=== PATIENT | female | born 1980 | race Caucasian/White ===

== ENCOUNTER 2016-10-14 23:50 | Emergency (ER) | payer OTHER ==
[~2016-10-14] VITALS: Ht 165.1 cm; Wt 124.5 kg
[~2016-10-14 23:50] MED LIST: ALBU8.5H5 INH; ALPR0.25 PO; ANTI DEPRESSANT; CITA10TA4 PO; DOXY100C15 PO; FLUT16SP2 NAS; HYDR1TAB16 PO; IBUP-1222 PO; LEVO750T26 PO; LISI-167 PO; METH4TAB2 PO; NORE1TAB18 PO; OMEP10CA4 PO
[2016-10-15] MEDS ORDERED: OXYcodone/APAP 5/325MG TABLET PO ONE (00:30)
[2016-10-15] MEDS ORDERED: ONDANSETRON ODT 4 MG PO ONE ×2 (00:30→01:30)
[2016-10-15] MEDS ORDERED: ONDANSETRON ODT 4 MG ONE (00:33)
[2016-10-15] MEDS ORDERED: OXYcodone/APAP 5/325MG TABLET ONE (00:33)
[2016-10-15] MEDS ORDERED: KETOROLAC 30 MG/1 ML ONE (01:21)
[2016-10-15] MEDS ORDERED: KETOROLAC 30 MG/1 ML IM ONE (01:30)
[2016-10-15] MEDS ORDERED: HYDROmorphone 1 MG/ML, 1ML IM ONE (01:30)
[2016-10-15 01:42] VITALS: BP 160/67
== END 2016-10-15 01:54 | disposition home or self-care (01) ==
LOC: ED 23:59
DX: K02.9 Dental caries, unspecified (principal); Z88.2 Allergy status to sulfonamides; Z88.0 Allergy status to penicillin; G89.29 Other chronic pain; M54.9 Dorsalgia, unspecified; E11.9 Type 2 diabetes mellitus without complications; I10 Essential (primary) hypertension
CPT/HCPCS: 82962; 99281; 99282

== ENCOUNTER → 2017-01-21 | Outpatient (CLI) | payer OTHER | END | disposition home or self-care (01) | LOC: CFH 15:56 | PROVIDERS: ATTEND Physician Assistant Medical | DX: K76.0 Fatty (change of) liver, not elsewhere classified (principal) | CPT/HCPCS: 76700 ==

== ENCOUNTER → 2017-02-21 | Outpatient (CLI) | payer OTHER | END | disposition home or self-care (01) | LOC: PETCFH 08:22 | PROVIDERS: ATTEND Physician Assistant Medical | DX: K82.8 Other specified diseases of gallbladder (principal) | CPT/HCPCS: 78227; A9537 ==

== ENCOUNTER 2017-03-03 05:55 | Inpatient (IN) | payer OTHER ==
[~2017-03-03] VITALS: Ht 165.1 cm; Wt 120.0 kg
[~2017-03-03 05:55] MED LIST changes: +METF500T4 PO; +NORE-62 PO; +PANT40TA5 PO
[2017-03-03 06:33] VITALS: BP 158/119
[2017-03-03] MEDS ORDERED: BUPIVACAINE/PF 0.5% ONE (07:04)
[2017-03-03] MEDS ORDERED: EPINEPHRINE 1 MG/ML, 1ML ONE ×2 (07:04→07:28)
[2017-03-03] MEDS: LACTATED RINGERS 1,000 ML IV SCH ×3 (07:10→10:22)
[2017-03-03 07:13] LABS: MICROSCOPIC AUTO
[2017-03-03] MEDS ORDERED: PROPOFOL 10 MG/ML, 20ML ONE ×4 (07:24→08:23)
[2017-03-03 07:26] LABS: CULTURE INDICATED? NO
[2017-03-03] MEDS ORDERED: MIDAZOLAM 1 MG/ML, 2ML ONE (07:26)
[2017-03-03] MEDS ORDERED: FENTANYL PF 100 MCG/2ML ONE (07:27)
[2017-03-03 07:30] LABS: HCG UR SG 1.031 (1.003-1.030)
[2017-03-03] MEDS ORDERED: ROCURONIUM 10 MG/ML,10ML ONE (07:31)
[2017-03-03] MEDS ORDERED: SUCCINYLCHOLINE 20 MG/ML, 10ML ONE (07:31)
[2017-03-03] MEDS ORDERED: KETAMINE 10 MG/ML, 20ML ONE (07:34)
[2017-03-03] MEDS ORDERED: LACTATED RINGERS 1,000 ML IV SCH (07:58)
[2017-03-03] MEDS ORDERED: DEXAMETHASONE 4 MG/ML, 1ML ONE ×2 (08:26)
[2017-03-03] MEDS ORDERED: ALBUTEROL HFA 90 MCG/SPRAY ONE (08:26)
[2017-03-03] MEDS ORDERED: PROPOFOL 100 ML IV ONE (08:51)
[2017-03-03] MEDS ORDERED: PROPOFOL 100 ML IV PRN (09:30)
[2017-03-03] MEDS ORDERED: SODIUM CHLORIDE 0.9% 1,000 ML IV SCH (10:12)
[2017-03-03] MEDS ORDERED: hydrALAzine 20 MG/ML, 1ML ONE (10:13)
[2017-03-03] MEDS ORDERED: hydrALAzine 20 MG/ML, 1ML IVPush PRN (10:30)
[2017-03-03] MEDS ORDERED: OXYcodone IR 5MG TABLET PO PRN (10:30)
[2017-03-03] MEDS ORDERED: LABETALOL 5MG/ML, 20ML IVPush PRN (10:30)
[2017-03-03] MEDS ORDERED: POLYETHYLENE GLYCOL 17 GM PACKET PO PRN (10:30)
[2017-03-03] MEDS ORDERED: ONDANSETRON 2MG/ML, 2ML IVPush PRN (10:30)
[2017-03-03] MEDS: ENOXAPARIN 40 MG/0.4 ML SQ SCH (11:55)
[2017-03-03] MEDS ORDERED: LISINOPRIL 5 MG TABLET ONE (12:55)
[2017-03-03] MEDS: NORETHINDRONE ETHINYL ESTRAD HOMEMEDPO SCH (12:59)
[2017-03-03] MEDS ORDERED: PANTOPROZOLE 40MG TABLET PO SCH (13:00)
[2017-03-03] MEDS ORDERED: LISINOPRIL 10 MG TABLET PO SCH (13:00)
[2017-03-03] MEDS ORDERED: CITALOPRAM 10 MG TABLET PO SCH (13:00)
[2017-03-03] MEDS ORDERED: ALBUTEROL SULFATE 2.5 MG/3 ML NPPB PRN (13:30)
[2017-03-03 14:09] LABS: BASOPHILS # (AUTO) 0.02 x10^3/uL (0-0.1); BASOPHILS % (AUTO) 0 % (0-1); EOSINOPHILS % (AUTO) 0 % (1-7); LYMPHOCYTES # (AUTO) 1.65 x10^3/uL (1-3.4); LYMPHOCYTES % (AUTO) 9 % (22-44); MD NO; MEAN CORPUSCULAR HEMOGLOBIN 28.2 pg (27.0-34.8); MEAN CORPUSCULAR VOLUME 85.5 fL (80-100); MEAN PLATELET VOLUME 8.4 fL (7.4-10.4); MONOCYTES # (AUTO) 0.07 x10^3/uL (0.2-0.8); MONOCYTES % (AUTO) 0 % (2-9); NEUTROPHILS % (AUTO) 90 % (42-75); PLATELET COUNT 404 x10^3/uL (130-400); RED BLOOD COUNT 5.05 x10^6/uL (3.82-5.3); RED CELL DISTRIBUTION WIDTH 13.9 % (9.6-15.2)
[2017-03-03 14:20] LABS: ALANINE AMINOTRANSFERASE 30 U/L (12-78); ALBUMIN 3.2 g/dL (3.4-5.0); ANION GAP 11 mmol/L (5-15); CALCIUM 8.4 mg/dL (8.5-10.1); CHLORIDE 105 mmol/L (98-107); CREATININE 0.69 mg/dL (0.55-1.02)
[2017-03-03 14:22] LABS: ALKALINE PHOSPHATASE 88 U/L (45-117); BILIRUBIN,TOTAL 0.6 mg/dL (0.2-1.0); TOTAL PROTEIN 7.5 g/dL (6.4-8.2)
[2017-03-03] MEDS: INSULIN ASPART 100 UNITS/ML, PEN SQ-INSULIN SCH ×2 (16:31→20:58)
[2017-03-03 20:10] VITALS: BP 136/86
[2017-03-03] MEDS: ACETAMINOPHEN 325 MG TABLET PO PRN (20:53)
[2017-03-03 23:21] VITALS: BP 140/96
[2017-03-04 03:19] VITALS: BP 130/77
[2017-03-04 05:02] LABS: BASOPHILS # (AUTO) 0.05 x10^3/uL (0-0.1); BASOPHILS % (AUTO) 0 % (0-1); EOSINOPHILS # (AUTO) 0.01 x10^3/uL (0-0.4); EOSINOPHILS % (AUTO) 0 % (1-7); LYMPHOCYTES # (AUTO) 3.51 x10^3/uL (1-3.4); LYMPHOCYTES % (AUTO) 22 % (22-44); MD NO; MEAN CORPUSCULAR HEMOGLOBIN 28.2 pg (27.0-34.8); MEAN CORPUSCULAR HGB CONC 32.8 g/dL (32.4-35.8); MEAN CORPUSCULAR VOLUME 86.2 fL (80-100); MEAN PLATELET VOLUME 8.2 fL (7.4-10.4); MONOCYTES # (AUTO) 1.04 x10^3/uL (0.2-0.8); MONOCYTES % (AUTO) 7 % (2-9); NEUTROPHILS # (AUTO) 11.41 x10^3/uL (1.8-6.8); NEUTROPHILS % (AUTO) 71 % (42-75); PLATELET COUNT 434 x10^3/uL (130-400); RED BLOOD COUNT 4.76 x10^6/uL (3.82-5.3); RED CELL DISTRIBUTION WIDTH 13.8 % (9.6-15.2)
[2017-03-04 05:20] LABS: CHLORIDE 105 mmol/L (98-107)
[2017-03-04 05:29] LABS: ALANINE AMINOTRANSFERASE 22 U/L (12-78); ALKALINE PHOSPHATASE 79 U/L (45-117); ANION GAP 9 mmol/L (5-15); BILIRUBIN,TOTAL 0.4 mg/dL (0.2-1.0); CALCIUM 8.6 mg/dL (8.5-10.1); CREATININE 0.66 mg/dL (0.55-1.02); TOTAL PROTEIN 6.9 g/dL (6.4-8.2)
[2017-03-04] MEDS: INSULIN ASPART 100 UNITS/ML, PEN SQ-INSULIN SCH ×2 (06:15→10:51)
[2017-03-04] MEDS: ACETAMINOPHEN 325 MG TABLET PO PRN (07:26)
[2017-03-04] MEDS: NORETHINDRONE ETHINYL ESTRAD HOMEMEDPO SCH (07:27)
[2017-03-04 08:30] VITALS: BP 128/85
[2017-03-04] MEDS ORDERED: SENNA/DOCUSATE TABLET PO SCH (09:00)
[2017-03-04] MEDS: ENOXAPARIN 40 MG/0.4 ML SQ SCH (10:30)
[2017-03-04 14:24] VITALS: BP 143/96
== END 2017-03-04 15:00 | disposition home or self-care (01) | DRG 444 ==
LOC: OUT 05:55 → CCU 08:55 → 4NOR 20:04 → DCLOUNGE 03-04 14:45
PROVIDERS: ADMIT Internal Medicine; ATTEND Internal Medicine
DX: K82.8 Other specified diseases of gallbladder (principal); J96.01 Acute respiratory failure with hypoxia; Z99.11 Dependence on respirator [ventilator] status; Z68.41 Body mass index [BMI] 40.0-44.9, adult; E11.9 Type 2 diabetes mellitus without complications; E66.01 Morbid (severe) obesity due to excess calories; F32.9 Major depressive disorder, single episode, unspecified; G47.33 Obstructive sleep apnea (adult) (pediatric); I10 Essential (primary) hypertension; J45.909 Unspecified asthma, uncomplicated; K21.9 Gastro-esophageal reflux disease without esophagitis; Z53.9 Procedure and treatment not carried out, unspecified reason; Z79.4 Long term (current) use of insulin; Z82.49 Family history of ischemic heart disease and other diseases of the circulatory system; Z91.19 Patient's noncompliance with other medical treatment and regimen; Z88.0 Allergy status to penicillin; Z88.2 Allergy status to sulfonamides; Z91.013 Allergy to seafood
CPT/HCPCS: 36415; 36600; 71010; 80053; 81001; 81025; 82803; 82962; 85025; 87081; 94002; 94150; J0171; J1100; J1650; J1815; J2250; J2704; J3010; J3490; J0330; J0360; J7030; J7120

== ENCOUNTER → 2017-06-28 | Outpatient (CLI) | payer OTHER | END | disposition home or self-care (01) | LOC: CFH 12:33 | PROVIDERS: ATTEND Physician Assistant Medical | DX: J98.11 Atelectasis (principal); J10.1 Influenza due to other identified influenza virus with other respiratory manifestations | CPT/HCPCS: 71046 ==

== ENCOUNTER → 2017-07-18 | Outpatient (CLI) | payer OTHER | END | disposition home or self-care (01) | LOC: RAD 14:01 | PROVIDERS: ATTEND Family Medicine | DX: M79.604 Pain in right leg (principal); R60.0 Localized edema ==

== ENCOUNTER → 2017-07-27 | Outpatient (CLI) | payer OTHER ==
[2017-07-27 12:38] LABS: BASOPHILS # (AUTO) 0.04 x10^3/uL (0-0.1); BASOPHILS % (AUTO) 0 % (0-1); EOSINOPHILS # (AUTO) 0.12 x10^3/uL (0-0.4); EOSINOPHILS % (AUTO) 1 % (1-7); LYMPHOCYTES # (AUTO) 3.93 x10^3/uL (1-3.4); LYMPHOCYTES % (AUTO) 30 % (22-44); MD NO; MEAN CORPUSCULAR HEMOGLOBIN 28.1 pg (27.0-34.8); MEAN CORPUSCULAR HGB CONC 32.8 g/dL (32.4-35.8); MEAN CORPUSCULAR VOLUME 85.5 fL (80-100); MEAN PLATELET VOLUME 8.6 fL (7.4-10.4); MONOCYTES # (AUTO) 0.66 x10^3/uL (0.2-0.8); MONOCYTES % (AUTO) 5 % (2-9); NEUTROPHILS # (AUTO) 8.38 x10^3/uL (1.8-6.8); NEUTROPHILS % (AUTO) 64 % (42-75); PLATELET COUNT 418 x10^3/uL (130-400); RED BLOOD COUNT 4.79 x10^6/uL (3.82-5.3)
[2017-07-27 12:55] LABS: CHLORIDE 109 mmol/L (98-107)
[2017-07-27 13:09] LABS: ALANINE AMINOTRANSFERASE 18 U/L (12-78); ALBUMIN 2.9 g/dL (3.4-5.0); ALKALINE PHOSPHATASE 87 U/L (45-117); ANION GAP 9 mmol/L (5-15); BILIRUBIN,TOTAL 0.4 mg/dL (0.2-1.0); CALCIUM 8.6 mg/dL (8.5-10.1); CHOL/HDL RATIO 6.1; CHOLESTEROL, TOTAL 184 mg/dL (140-239); CREATININE 0.72 mg/dL (0.55-1.02); FREE T4 (FREE THYROXINE) 1.09 ng/dL (0.76-1.46); HDL CHOL % 16 % (28-40); HDL CHOLESTEROL (DIRECT) 30 mg/dL (40-60); LDL CHOLESTEROL,CALCULATED 78 mg/dL (54-169); LDL/HDL RATIO 2.6 (0.5-3.0); TOTAL PROTEIN 7.2 g/dL (6.4-8.2); TRIGLYCERIDES 380 mg/dL (50-200); VLDL CHOLESTEROL 76 mg/dL (0-25)
[2017-07-27 13:22] LABS: MICROSCOPIC AUTO
[2017-07-27 13:24] LABS: CULTURE INDICATED? NO
[2017-07-27 13:28] LABS: HEMOGLOBIN A1C 8.2 % (4.2-6.3)
== END | disposition home or self-care (01) ==
LOC: CFH 07:41
PROVIDERS: ATTEND Physician Assistant Medical
DX: Z00.00 Encounter for general adult medical examination without abnormal findings (principal); I10 Essential (primary) hypertension; K21.0 Gastro-esophageal reflux disease with esophagitis; R53.83 Other fatigue
CPT/HCPCS: 36415; 80053; 80061; 81001; 82043; 82306; 83036; 83516; 84439; 84443; 84481; 85025; 86038; 86141; 86160; 86225; 86235; 86255; 86256; 86376; 86431; 86800

== ENCOUNTER → 2017-08-05 | Outpatient (CLI) | payer OTHER | END | disposition home or self-care (01) | LOC: CVU 06:56 | PROVIDERS: ATTEND Internal Medicine Critical Care Medicine | DX: I10 Essential (primary) hypertension (principal); G47.30 Sleep apnea, unspecified; J45.909 Unspecified asthma, uncomplicated; Z87.891 Personal history of nicotine dependence | CPT/HCPCS: 93306 ==

== ENCOUNTER → 2018-05-02 | Outpatient (CLI) | payer OTHER ==
[~2018-05-02] MED LIST changes: +METF500T17 PO; -METF500T4 PO
[2018-05-02 12:53] LABS: BASOPHILS # (AUTO) 0.04 x10^3/uL (0-0.1); BASOPHILS % (AUTO) 0 % (0-1); EOSINOPHILS # (AUTO) 0.13 x10^3/uL (0-0.4); EOSINOPHILS % (AUTO) 1 % (1-7); LYMPHOCYTES # (AUTO) 3.96 x10^3/uL (1-3.4); LYMPHOCYTES % (AUTO) 36 % (22-44); MD NO; MEAN CORPUSCULAR HGB CONC 32.2 g/dL (32.4-35.8); MEAN CORPUSCULAR VOLUME 83.9 fL (80-100); MEAN PLATELET VOLUME 8.3 fL (7.4-10.4); MONOCYTES # (AUTO) 0.57 x10^3/uL (0.2-0.8); MONOCYTES % (AUTO) 5 % (2-9); NEUTROPHILS # (AUTO) 6.21 x10^3/uL (1.8-6.8); NEUTROPHILS % (AUTO) 57 % (42-75); PLATELET COUNT 412 x10^3/uL (130-400); RED BLOOD COUNT 4.76 x10^6/uL (3.82-5.3); RED CELL DISTRIBUTION WIDTH 13.7 % (9.6-15.2)
[2018-05-02 13:16] LABS: HEMOGLOBIN A1C 8.6 % (4.2-6.3)
[2018-05-02 13:47] LABS: ALBUMIN 3.1 g/dL (3.4-5.0); ANION GAP 8 mmol/L (5-15); CALCIUM 8.6 mg/dL (8.5-10.1); CHLORIDE 107 mmol/L (98-107)
[2018-05-02 13:57] LABS: ALANINE AMINOTRANSFERASE 17 U/L (12-78); ALKALINE PHOSPHATASE 90 U/L (45-117); BILIRUBIN,TOTAL 0.2 mg/dL (0.2-1.0); CHOL/HDL RATIO 4.6; CHOLESTEROL, TOTAL 144 mg/dL (140-239); CREATININE 0.76 mg/dL (0.55-1.02); FREE T4 (FREE THYROXINE) 1.05 ng/dL (0.76-1.46); HDL CHOL % 22 % (28-40); HDL CHOLESTEROL (DIRECT) 31 mg/dL (40-60); LDL CHOLESTEROL,CALCULATED 47 mg/dL (54-169); LDL/HDL RATIO 1.5 (0.5-3.0); TOTAL PROTEIN 7.5 g/dL (6.4-8.2); TRIGLYCERIDES 332 mg/dL (50-200); VLDL CHOLESTEROL 66 mg/dL (0-25)
== END | disposition home or self-care (01) ==
LOC: CFH 08:02
PROVIDERS: ATTEND Nurse Practitioner Family
DX: D72.828 Other elevated white blood cell count (principal); E13.65 Other specified diabetes mellitus with hyperglycemia; E55.9 Vitamin D deficiency, unspecified; I10 Essential (primary) hypertension; R76.9 Abnormal immunological finding in serum, unspecified
CPT/HCPCS: 36415; 80053; 80061; 82043; 82306; 83036; 84439; 84443; 85025

== ENCOUNTER → 2018-06-29 | Outpatient (CLI) | payer OTHER ==
[2018-06-29 13:35] LABS: HEMOGLOBIN A1C 7.9 % (4.2-6.3)
[2018-06-29 13:36] LABS: ALANINE AMINOTRANSFERASE 14 U/L (12-78); ANION GAP 6 mmol/L (5-15); CALCIUM 8.7 mg/dL (8.5-10.1); CHLORIDE 107 mmol/L (98-107); CREATININE 0.67 mg/dL (0.55-1.02)
[2018-06-29 13:38] LABS: ALKALINE PHOSPHATASE 84 U/L (45-117); BILIRUBIN,TOTAL 0.4 mg/dL (0.2-1.0); TOTAL PROTEIN 7.2 g/dL (6.4-8.2)
== END | disposition home or self-care (01) ==
LOC: CFH 08:36
PROVIDERS: ATTEND Nurse Practitioner Family
DX: E11.65 Type 2 diabetes mellitus with hyperglycemia (principal); E78.5 Hyperlipidemia, unspecified; I10 Essential (primary) hypertension; Z79.84 Long term (current) use of oral hypoglycemic drugs
CPT/HCPCS: 36415; 80053; 83036

== ENCOUNTER → 2018-07-06 | Outpatient (CLI) | payer OTHER | END | disposition home or self-care (01) | LOC: CFH 12:35 | PROVIDERS: ATTEND Obstetrics & Gynecology | DX: Z12.31 Encounter for screening mammogram for malignant neoplasm of breast (principal) | CPT/HCPCS: 77067 ==

== ENCOUNTER → 2018-09-01 | Outpatient (CLI) | payer OTHER ==
[2018-09-01 12:27] LABS: BASOPHILS # (AUTO) 0.03 x10^3/uL (0-0.1); BASOPHILS % (AUTO) 0 % (0-1); EOSINOPHILS % (AUTO) 1 % (1-7); LYMPHOCYTES # (AUTO) 3.59 x10^3/uL (1-3.4); LYMPHOCYTES % (AUTO) 33 % (22-44); MD NO; MEAN CORPUSCULAR HEMOGLOBIN 26.9 pg (27.0-34.8); MEAN CORPUSCULAR HGB CONC 32.2 g/dL (32.4-35.8); MEAN CORPUSCULAR VOLUME 83.7 fL (80-100); MEAN PLATELET VOLUME 8.3 fL (7.4-10.4); MONOCYTES # (AUTO) 0.52 x10^3/uL (0.2-0.8); MONOCYTES % (AUTO) 5 % (2-9); NEUTROPHILS # (AUTO) 6.76 x10^3/uL (1.8-6.8); NEUTROPHILS % (AUTO) 61 % (42-75); PLATELET COUNT 488 x10^3/uL (130-400); RED CELL DISTRIBUTION WIDTH 14.8 % (9.6-15.2)
[2018-09-01 12:37] LABS: ALANINE AMINOTRANSFERASE 13 U/L (12-78); ALBUMIN 3.2 g/dL (3.4-5.0); ANION GAP 7 mmol/L (5-15); CALCIUM 8.9 mg/dL (8.5-10.1); CHLORIDE 108 mmol/L (98-107); CHOLESTEROL, TOTAL 162 mg/dL (140-239); CREATININE 0.81 mg/dL (0.55-1.02); TRIGLYCERIDES 295 mg/dL (50-200); VLDL CHOLESTEROL 59 mg/dL (0-25)
[2018-09-01 12:39] LABS: ALKALINE PHOSPHATASE 93 U/L (45-117); BILIRUBIN,TOTAL 0.3 mg/dL (0.2-1.0); CHOL/HDL RATIO 4.4; HDL CHOL % 23 % (28-40); HDL CHOLESTEROL (DIRECT) 37 mg/dL (40-60); LDL CHOLESTEROL,CALCULATED 66 mg/dL (54-169); LDL/HDL RATIO 1.8 (0.5-3.0); TOTAL PROTEIN 7.8 g/dL (6.4-8.2)
[2018-09-01 12:46] LABS: HEMOGLOBIN A1C 6.8 % (4.2-6.3)
== END | disposition home or self-care (01) ==
LOC: CFH 08:36
PROVIDERS: ATTEND Nurse Practitioner Family
DX: E78.5 Hyperlipidemia, unspecified (principal); E11.65 Type 2 diabetes mellitus with hyperglycemia; I10 Essential (primary) hypertension; J45.909 Unspecified asthma, uncomplicated
CPT/HCPCS: 36415; 80053; 80061; 82043; 83036; 85025

== ENCOUNTER 2019-02-06 08:19 | Outpatient (CLI) | payer OTHER ==
[~2019-02-06 08:19] MED LIST changes: -OMEP10CA4 PO; +OMEP10CA5 PO
[2019-02-06 11:18] LABS: BASOPHILS # (AUTO) 0.05 x10^3/uL (0-0.1); BASOPHILS % (AUTO) 1 % (0-1); EOSINOPHILS # (AUTO) 0.11 x10^3/uL (0-0.4); EOSINOPHILS % (AUTO) 1 % (1-7); LYMPHOCYTES # (AUTO) 3.58 x10^3/uL (1-3.4); LYMPHOCYTES % (AUTO) 36 % (22-44); MD NO; MEAN CORPUSCULAR HEMOGLOBIN 26.9 pg (27.0-34.8); MEAN CORPUSCULAR VOLUME 83.9 fL (80-100); MEAN PLATELET VOLUME 8.3 fL (7.4-10.4); MONOCYTES # (AUTO) 0.56 x10^3/uL (0.2-0.8); MONOCYTES % (AUTO) 6 % (2-9); NEUTROPHILS # (AUTO) 5.72 x10^3/uL (1.8-6.8); NEUTROPHILS % (AUTO) 57 % (42-75); PLATELET COUNT 438 x10^3/uL (130-400); RED BLOOD COUNT 4.86 x10^6/uL (3.82-5.3); RED CELL DISTRIBUTION WIDTH 15.3 % (9.6-15.2)
[2019-02-06 11:27] LABS: CHLORIDE 108 mmol/L (98-107)
[2019-02-06 11:36] LABS: ALANINE AMINOTRANSFERASE 16 U/L (12-78); ALBUMIN 3.1 g/dL (3.4-5.0); ALKALINE PHOSPHATASE 89 U/L (45-117); ANION GAP 9 mmol/L (5-15); BILIRUBIN,TOTAL 0.4 mg/dL (0.2-1.0); CALCIUM 8.7 mg/dL (8.5-10.1); CHOL/HDL RATIO 3.9; CHOLESTEROL, TOTAL 152 mg/dL (140-239); CREATININE 0.76 mg/dL (0.55-1.02); HDL CHOL % 26 % (28-40); HDL CHOLESTEROL (DIRECT) 39 mg/dL (40-60); LDL CHOLESTEROL,CALCULATED 65 mg/dL (54-169); LDL/HDL RATIO 1.7 (0.5-3.0); TOTAL PROTEIN 7.5 g/dL (6.4-8.2); TRIGLYCERIDES 239 mg/dL (50-200); VLDL CHOLESTEROL 48 mg/dL (0-25)
== END 2019-02-06 23:59 | disposition home or self-care (01) ==
LOC: CFH 08:19
PROVIDERS: ATTEND Nurse Practitioner Family
DX: D72.829 Elevated white blood cell count, unspecified (principal); E11.65 Type 2 diabetes mellitus with hyperglycemia; E55.9 Vitamin D deficiency, unspecified; E66.9 Obesity, unspecified; E78.5 Hyperlipidemia, unspecified; I10 Essential (primary) hypertension; J45.41 Moderate persistent asthma with (acute) exacerbation
CPT/HCPCS: 36415; 80053; 80061; 82306; 83036; 85025

== ENCOUNTER → 2020-03-10 | Outpatient (CLI) | payer OTHER ==
[~2020-03-10] MED LIST changes: -PANT40TA5 PO; +PANT40TA6 PO
[2020-03-10 07:44] LABS: BASOPHILS % (AUTO) 1 % (0-1); EOSINOPHILS % (AUTO) 1 % (1-7); LYMPHOCYTES % (AUTO) 36 % (22-44); MEAN CORPUSCULAR HEMOGLOBIN 26.8 pg (27.0-34.8); MEAN CORPUSCULAR HGB CONC 32.6 g/dL (32.4-35.8); MEAN PLATELET VOLUME 7.6 fL (7.4-10.4); MONOCYTES % (AUTO) 7 % (2-9); NEUTROPHILS % (AUTO) 55 % (42-75); PLATELET COUNT 474 x10^3/uL (130-400); RED BLOOD COUNT 5.13 x10^6/uL (3.82-5.3); RED CELL DISTRIBUTION WIDTH 15.7 % (9.6-15.2)
[2020-03-10 07:56] LABS: CHLORIDE 107 mmol/L (98-107)
[2020-03-10 08:08] LABS: ALANINE AMINOTRANSFERASE 18 U/L (12-78); ALBUMIN 3.6 g/dL (3.4-5.0); ALKALINE PHOSPHATASE 105 U/L (45-117); ANION GAP 7 mmol/L (5-15); BILIRUBIN,TOTAL 0.3 mg/dL (0.2-1.0); CALCIUM 8.9 mg/dL (8.5-10.1); CHOL/HDL RATIO 4.7; CHOLESTEROL, TOTAL 165 mg/dL (140-239); CREATININE 0.72 mg/dL (0.55-1.02); HDL CHOL % 21 % (28-40); HDL CHOLESTEROL (DIRECT) 35 mg/dL (40-60); LDL CHOLESTEROL,CALCULATED 95 mg/dL (54-169); LDL/HDL RATIO 2.7 (0.5-3.0); TOTAL PROTEIN 7.6 g/dL (6.4-8.2); TRIGLYCERIDES 176 mg/dL (50-200); VLDL CHOLESTEROL 35 mg/dL (0-25)
[2020-03-10 08:48] LABS: MD SCAN
== END | disposition home or self-care (01) ==
LOC: LAB 07:31
PROVIDERS: ATTEND Nurse Practitioner Family
DX: E11.65 Type 2 diabetes mellitus with hyperglycemia (principal); D72.829 Elevated white blood cell count, unspecified; E55.9 Vitamin D deficiency, unspecified; E66.9 Obesity, unspecified; I10 Essential (primary) hypertension; E78.5 Hyperlipidemia, unspecified; K21.9 Gastro-esophageal reflux disease without esophagitis; J45.909 Unspecified asthma, uncomplicated; F43.23 Adjustment disorder with mixed anxiety and depressed mood
CPT/HCPCS: 36415; 80053; 80061; 82306; 83036; 85025

== ENCOUNTER → 2020-06-02 | Outpatient (CLI) | payer OTHER | END | disposition home or self-care (01) | LOC: CFH 12:43 | PROVIDERS: ATTEND Obstetrics & Gynecology | DX: Z12.31 Encounter for screening mammogram for malignant neoplasm of breast (principal) | CPT/HCPCS: 77063; 77067 ==

== ENCOUNTER 2020-11-06 13:51 | Outpatient (CLI) | payer OTHER ==
[~2020-11-06 13:51] MED LIST changes: +DOXY-246 PO; -DOXY100C15 PO
[2020-11-06] MEDS ORDERED: CHOL200052 PO (13:59)
[2020-11-06] MEDS ORDERED: CRAN1CAP8 PO (13:59)
[2020-11-06] MEDS ORDERED: FLUT1BLS INH (13:59)
[2020-11-06] MEDS ORDERED: GLYB5TAB3 PO (13:59)
[2020-11-06] MEDS ORDERED: ACET-1600 PO (13:59)
[2020-11-06] MEDS ORDERED: ACYC-40 PO (13:59)
[2020-11-06] MEDS ORDERED: FLUT9.9S NS (13:59)
[2020-11-06] MEDS ORDERED: L.AC1CAP6 PO (13:59)
[2020-11-06] MEDS ORDERED: [UNRECOGNIZED DRUG - OTHER] PO (13:59)
[2020-11-06] MEDS ORDERED: [UNRECOGNIZED DRUG - OTHER] PO (13:59)
[2020-11-06] MEDS ORDERED: EMPA1TAB7 PO (13:59)
[2020-11-06] MEDS ORDERED: MULT-124 PO (13:59)
[2020-11-06] MEDS ORDERED: LISI-170 PO (13:59)
[2020-11-06] MEDS ORDERED: IBUP-1623 PO (13:59)
[2020-11-06] MEDS ORDERED: ROSU5TAB PO (13:59)
[2020-11-06] MEDS ORDERED: CITA40TA5 PO (13:59)
[2020-11-06] MEDS ORDERED: ALBU8.5H8 INH (13:59)
[2020-11-06 14:43] LABS: ALANINE AMINOTRANSFERASE 21 U/L (12-78); ALBUMIN 3.6 g/dL (3.4-5.0); ANION GAP 8 mmol/L (5-15); CHLORIDE 104 mmol/L (98-107)
[2020-11-06 14:46] LABS: ALKALINE PHOSPHATASE 89 U/L (45-117); BILIRUBIN,TOTAL 0.2 mg/dL (0.2-1.0); CALCIUM 9.5 mg/dL (8.5-10.1); CREATININE 0.64 mg/dL (0.55-1.02); TOTAL PROTEIN 8.1 g/dL (6.4-8.2)
== END 2020-11-06 23:59 | disposition home or self-care (01) ==
LOC: STAR 13:51
PROVIDERS: ATTEND Thoracic Surgery (Cardiothoracic Vascular Surgery)
DX: Z01.818 Encounter for other preprocedural examination (principal); R22.9 Localized swelling, mass and lump, unspecified
CPT/HCPCS: 36415; 80053; 93005

== ENCOUNTER 2020-11-12 06:17 | Day surgery (SDC) | payer OTHER ==
[~2020-11-12] VITALS: Ht 162.6 cm; Wt 109.2 kg
[~2020-11-12 06:17] MED LIST changes: +ACET-1600 PO; +ACYC-40 PO; +ALBU8.5H8 INH; +CHOL200052 PO; +CITA40TA5 PO; +CRAN1CAP8 PO; +EMPA1TAB7 PO; +FLUT1BLS INH; +FLUT9.9S NS; +GLYB5TAB3 PO; +IBUP-1623 PO; +L.AC1CAP6 PO; +LISI-170 PO; +MULT-124 PO; +ROSU5TAB PO; +[UNRECOGNIZED DRUG - OTHER] PO; +[UNRECOGNIZED DRUG - OTHER] PO
[2020-11-12] MEDS ORDERED: EPINEPHRINE 1 MG/ML, 1ML ONE (06:44)
[2020-11-12] MEDS ORDERED: BUPIVACAINE/PF 0.5% ONE (06:44)
[2020-11-12 06:58] LABS: HCG UR SG 1.044 (1.003-1.030)
[2020-11-12] MEDS ORDERED: CHLORHEXIDINE 15 ML UDC PO ONE (07:00)
[2020-11-12] MEDS ORDERED: LACTATED RINGERS 1,000 ML IV SCH ×2 (07:00→09:00)
[2020-11-12] MEDS ORDERED: ALBUTEROL SULFATE 2.5 MG/3 ML NPPB STA (07:09)
[2020-11-12] MEDS ORDERED: PROPOFOL 10 MG/ML, 20ML ONE (07:17)
[2020-11-12] MEDS ORDERED: SUCCINYLCHOLINE 20 MG/ML, 10ML ONE (07:17)
[2020-11-12] MEDS ORDERED: LIDOCAINE-MPF 2% ,5ML ONE (07:17)
[2020-11-12 07:18] VITALS: BP 137/90
[2020-11-12] MEDS ORDERED: ALBUTEROL SULFATE 2.5 MG/3 ML ONE (07:28)
[2020-11-12] MEDS ORDERED: FENTANYL PF 100 MCG/2ML IV PRN (08:00)
[2020-11-12] MEDS ORDERED: ALBUTEROL SULFATE 2.5 MG/3 ML NPPB PRN (08:00)
[2020-11-12] MEDS ORDERED: ACETAMINOPHEN 325 MG TABLET PO PRN (08:00)
[2020-11-12] MEDS ORDERED: OXYcodone 5 MG/5 ML ORAL.SOL UDC PO PRN (08:00)
[2020-11-12] MEDS ORDERED: morphine SULFATE 10 MG/ML, 1ML IVPush PRN ×2 (08:00→09:00)
[2020-11-12] MEDS ORDERED: PROMETHAZINE 25 MG/ML, 1ML IVPush PRN (08:00)
[2020-11-12] MEDS ORDERED: CEFAZOLIN 1,000 MG ONE (08:04)
[2020-11-12] MEDS ORDERED: BUPIVACAINE/PF-EPI 0.5% 1:200K INFIL ONE (08:05)
[2020-11-12] MEDS ORDERED: FENTANYL PF 100 MCG/2ML ONE (08:06)
[2020-11-12] MEDS ORDERED: ONDANSETRON 2MG/ML, 2ML ONE (08:13)
[2020-11-12] MEDS ORDERED: HYDR-2214 PO (08:56)
[2020-11-12] MEDS ORDERED: METHOCARBAMOL 1,000 MG in DEXTROSE 5% 100 ML IV ONE (09:00)
[2020-11-12] MEDS ORDERED: HYDROcodone/APAP 5/325 TABLET PO PRN (09:00)
[2020-11-12] MEDS ORDERED: KETOROLAC 30 MG/1 ML IVPush PRN (09:00)
[2020-11-12] MEDS ORDERED: ONDANSETRON 2MG/ML, 2ML IVPush PRN (09:00)
[2020-11-12] MEDS ORDERED: KETOROLAC 30 MG/1 ML ONE (09:14)
[2020-11-12] MEDS ORDERED: ACETAMINOPHEN 650 MG/20.3 ML UDC ONE (09:17)
[2020-11-12] MEDS ORDERED: OXYcodone 5 MG/5 ML ORAL.SOL UDC ONE (09:17)
== END 2020-11-12 11:42 | disposition home or self-care (01) ==
LOC: OUT 06:17
PROVIDERS: ATTEND Thoracic Surgery (Cardiothoracic Vascular Surgery)
DX: R22.2 Localized swelling, mass and lump, trunk (principal); E11.9 Type 2 diabetes mellitus without complications; I10 Essential (primary) hypertension; J45.909 Unspecified asthma, uncomplicated; Z79.899 Other long term (current) drug therapy; Z88.0 Allergy status to penicillin; Z88.2 Allergy status to sulfonamides
CPT/HCPCS: 21933; 81025; 82962; 88307; 94640; J0171; J0330; J0690; J1885; J2405; J2704; J2800; J3010; J7120; J7613